=== PATIENT | male | born 1945 | race Caucasian/White ===

== ENCOUNTER → 2017-09-14 15:45 | Outpatient (CLI) | payer MEDICARE, SELFPAY ==
[2017-09-14 16:24] LABS: International Normalized Ratio 2.7; Prothrombin Time (Protime)PT. 27.3 SECONDS (11.7-14.9)
== END ==
PROVIDERS: Family Provider Family Medicine; PCP Family Medicine
DX: I26.99 Other pulmonary embolism without acute cor pulmonale (principal)
CPT/HCPCS: 85610